=== PATIENT | female | born 1955 | race Caucasian/White ===

== ENCOUNTER 2017-03-21 11:18 | Day surgery (SDC) | payer BC ==
[2017-03-21] MEDS ORDERED: LIDOCAINE 2% MDV (20MG/ML) 20ML VIAL IV ONE (11:19)
[2017-03-21] MEDS ORDERED: PROPOFOL 10 MG/ML VIAL IV ONE (11:19)
--- NOTE | 2017-03-22 12:30 | Operative Note ---
DATE OF SURGERY: 03/21/2017 OPERATION: COLONOSCOPY with cold snare and cold forceps polypectomies. PREOPERATIVE DIAGNOSIS: Surveillance, family history of colon polyps. POSTOPERATIVE DIAGNOSES: 1. Mild sigmoid diverticulosis. 2. Colon polyps. PROCEDURE: After informed consent was obtained from the patient, she was placed in the left lateral decubitus position in the endoscopy suite, sedated and monitored by the department of anesthesia. Digital rectal exam was unremarkable. A well-lubricated [id number] colonoscope was inserted into the rectum and advanced to the cecum. Preparation quality was good to excellent. The cecum was unremarkable as were the ileocecal valve and appendiceal orifice. There were 2 diminutive polyps in the ascending colon each removed with a cold forceps. The remainder of the ascending colon, transverse colon, and descending colon were unremarkable. The sigmoid colon revealed 2 sessile polyps approximately 5 mm in diameter each removed with a cold snare. Minimal bleeding was noted at the site. There were also noted to be mild sigmoid diverticular changes. The rectum was unremarkable in forward and J-turn views. The endoscope was straightened, the rectal ampulla deflated, and the endoscope was removed. RECOMMENDATIONS: The patient should follow a high-fiber diet and use a fiber supplement if possible. She will require repeat exam in 3-5 years pending tissue histology. As always, thank you for allowing me to participate in the healthcare of your patients. CC: Dr. Carmelo SUNG
== END 2017-03-21 12:30 | disposition home or self-care (01) ==
LOC: HOP 11:18
PROVIDERS: ATTEND Internal Medicine Gastroenterology
DX: Z12.11 Encounter for screening for malignant neoplasm of colon (principal); Z83.71 Family history of colonic polyps; D12.5 Benign neoplasm of sigmoid colon; D12.2 Benign neoplasm of ascending colon; K57.30 Diverticulosis of large intestine without perforation or abscess without bleeding; I10 Essential (primary) hypertension; E78.00 Pure hypercholesterolemia, unspecified